=== PATIENT | male | born 1975 | race Caucasian/White ===

== ENCOUNTER 2022-02-05 17:00 | Emergency (ER) | payer OTHER, SELFPAY ==
--- NOTE | ~2022-02-05 | XR_ITS ---
EXAM: XR cervical spine 4-5V DATE: 02/05/2022 18:09 HISTORY: RT SIDE NECK PAIN INTO RT UPPER CHEST NO RECENT INJURY . COMPARISON: None available. FINDINGS: ACDF spanning C5-C7. Fractured bilateral fixation screws at C7. No displacement of the fixa tion plate. Interbody devices remain in good position. Craniocervical association and atlantoaxial katya int are aligned. No prevertebral soft tissue swelling. Vertebral bodies are aligned. Vertebral body h eights are maintained. Normal seminole disc spaces. Normal facets and posterior elements. Moderate righ t neural foraminal narrowing at C4-5. Remaining neural foramen are patent. No fracture or traumatic m alalignment. IMPRESSION: ACDF spanning C5-C7. Fractured inferior fixation screws at C7 without hardware displaceme nt. Moderate right neural foraminal narrowing at C4-5. Reviewed, dictated and finalized at location [facility] [employer]ECUTIVE IMPRESSION: ACDF spanning C5-C7. Fractured inferior fixation screws at C7 witho ut hardware displacement. Moderate right neural foraminal narrowing at C4-5.
[2022-02-05 17:10] VITALS: BP 159/93; PULSE 70; RESP 20; TEMP 36.6; O2SAT 99
--- NOTE | 2022-02-05 17:31 | ED.GENADULT ---
HPI - General Adult General Chief complaint: Neck Pain/Injury Stated complaint: unknown Time Seen by Provider: 02/05/22 17:35 Source: patient, RN notes reviewed and old records reviewed Mode of arrival: ambulatory Limitations: no limitations History of Present Illness HPI narrative: 46-year-old male presents to the [facility] with complaints of right neck pain radiating down right pectoral muscle in sometimes down his arm. Has a history of C5-7 surgical repair. Patient is concerned that the hardware is failing. Has an appointment on February 19 with his neurosurgeon. Neurosurgeon located [facility]. Patient is able to move all extremities. No numbness or tingling in for all 5 fingers. Full range of motion of the shoulder, elbow, wrist. 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 Patient denies any chest pain, shortness of breath. Only complaint is he is feeling tingling into the right pectoral muscle intermittently based on how he moves as well. Related Data Home Medications Medication Instructions Recorded Confirmed meloxicam 15 mg tablet 15 mg PO PRN PRN Pain (Scale Score 02/05/22 02/05/22 1-3) Allergies Allergy/AdvReac Type Severity Reaction Status Date / Time No Known Allergies Allergy Verified 02/05/22 17:28 Review of Systems Review of Systems: All systems reviewed & are unremarkable except as noted in HPI and below Constitutional: Constitutional: Reports no additional constitutional complaints Eyes: Eyes: Reports no additional eye complaints ENT: Reports system reviewed and no additional complaints, except as documented Cardiovascular: Cardiovascular: Reports no additional cardiovascular complaints, Denies chest pain and Denies dyspnea Respiratory: Respiratory: Reports no additional respiratory complaints, Denies chest congestion, Denies cough and Denies dyspnea Gastrointestinal: Gastrointestinal: Reports no additional gastrointestinal complaints, Denies abdominal pain, Denies nausea and Denies vomiting Musculoskeletal: Musculoskeletal: Reports as per HPI Integumentary/Breasts: Skin/Breast: Reports system reviewed and no additional complaints, except as docu Neurologic: Reports system reviewed and no additional complaints, except as documented Psychiatric: Psychiatric: Reports no additional psychiatric complaints Allergic/Immunologic: Allergic/Immunologic: Reports no additional allergic/immunologic complaints [facility] Surgical History Surgical History (Updated 02/05/22 @ 20:46 by Karrie Kemp, [id number]) H/O Spinal surgery C5 through 7 Comments At the time of my signature, I reviewed and agree with the nursing past medical, surgical, social, and family history. There is no relevant family history pertinent to the patient complaint. Exam Const: General: cooperative, healthy appearing, comfortable, no acute distress, well developed, alert and well nourished Nutritional Appearance: well nourished Orientation/consciousness: patient oriented x3 Limitations: no limitations HENMT: Head: normal to inspection Ears: hearing grossly normal bilaterally and external ears normal Face/Nose/Sinus: Normal external nose present, Normal nares present, Normal nasal mucous membranes and turbinates present and normal facial exam Face and sinus: normal facial exam Mouth: Yes Normal oral and palatal mucosa present, Yes lip normal and Yes moist mucous membranes Throat: posterior oropharynx normal and uvula midline Eyes: General: appearance normal, both eyes and all related structures Alignment and Position: alignment normal Periorbital: periorbital findings normal Conjunctivae: conjunctivae normal Pupils: Equal, round and reactive pupils present EOM: EOMs intact bilaterally Neck: Neck: normal visual inspection, full ROM, no lymphadenopathy and no meningeal signs Chest: Chest palpation & inspection: normal inspection of the chest Resp: Effort & Inspection: normal respiratory effort and able to speak in complete sen
== END 2022-02-05 18:36 | disposition home or self-care (01) ==
PROVIDERS: Emergency Provider Nurse Practitioner; PCP Family Medicine
DX: M54.12 Radiculopathy, cervical region (principal); M19.90 Unspecified osteoarthritis, unspecified site
CPT/HCPCS: 72050; 99203; G0463